=== PATIENT | male | born 1945 | race Caucasian/White ===

== ENCOUNTER 2020-10-01 16:00 | Inpatient (IN) | payer MEDICARE, OTHER ==
[~2020-10-01] VITALS: Ht 175.3 cm; Wt 81.2 kg
--- NOTE | 2020-10-01 16:15 | NUR ---
IFRAH FROM [facility] AFTER HAVING SYMPTOMATIC AFIB. PT WAS CONVERTED TO SR IN 60'S WITH 100 KJ CARDIOVERSON AFTER 6 OF ADENOSINE FAILED TO CONVERT. PT ALSO WITH ELEVATED TROP AT .745. HX OF AFIB AND MEDICAL NON COMPLIANCE. DR. GIRALDO TO BEDSIDE FOR EVALUATION. PT POSTIONED TO COMFORT. ATTACHED TO MONITOR. VSS. NADN. EKG DELIEVER TO DR. ANDERSON.
--- NOTE | 2020-10-01 16:50 | NUR ---
DR. REED TO BEDSIDE. ATTACHED TO MONITORS. VSS. DAVIDSON.
[2020-10-01] MEDS ORDERED: AMLO-210 PO (17:13)
[2020-10-01] MEDS ORDERED: RIVA10TA2 PO (17:13)
[2020-10-01] MEDS ORDERED: TIOT4MIS5 INH (17:13)
[2020-10-01] MEDS ORDERED: BUPR1FIL19 SL (17:13)
[2020-10-01] MEDS ORDERED: TERA2CAP3 PO (17:13)
[2020-10-01] MEDS ORDERED: ALBU5SOL6 INH (17:13)
[2020-10-01 17:19] LABS: BASOPHILS % (AUTO) 1 % (0-1); EOSINOPHILS % (AUTO) 3 % (1-7); LYMPHOCYTES % (AUTO) 17 % (22-44); MEAN CORPUSCULAR HEMOGLOBIN 32.5 pg (27.5-34.5); MEAN CORPUSCULAR HGB CONC 34.7 g/dL (33.2-36.2); MEAN PLATELET VOLUME 8.2 fL (7.4-10.4); MONOCYTES % (AUTO) 6 % (2-9); NEUTROPHILS % (AUTO) 73 % (42-75); PLATELET COUNT 208 x10^3/uL (130-400); RED CELL DISTRIBUTION WIDTH 13.4 % (9.4-14.8)
[2020-10-01 17:20] LABS: MD NO
[2020-10-01] MEDS ORDERED: ACETAMINOPHEN 325 MG TABLET PO PRN (17:30)
[2020-10-01] MEDS ORDERED: ONDANSETRON ODT 4 MG PO PRN (17:30)
[2020-10-01] MEDS ORDERED: ONDANSETRON 2MG/ML, 2ML IVPush PRN (17:30)
[2020-10-01] MEDS ORDERED: PROMETHAZINE 25 MG/ML, 1ML IM PRN (17:30)
[2020-10-01] MEDS ORDERED: BISACODYL 10 MG SUPP PR PRN (17:30)
[2020-10-01] MEDS ORDERED: hydrALAzine 20 MG/ML, 1ML IVPush PRN (17:30)
[2020-10-01] MEDS ORDERED: DOCUSATE 100 MG CAPSULE PO PRN (17:30)
[2020-10-01] MEDS ORDERED: FLUTICASONE/VILANTEROL 200-25MCG/INH INH SCH (17:30)
[2020-10-01] MEDS ORDERED: POLYETHYLENE GLYCOL 17 GM PACKET PO PRN (17:30)
[2020-10-01] MEDS ORDERED: NITROGLYCERIN 0.4 MG BOTTLE (25 TABS) SL PRN (17:30)
[2020-10-01] MEDS ORDERED: OXYcodone IR 5MG TABLET PO PRN (17:30)
[2020-10-01] MEDS ORDERED: morphine SULFATE 10 MG/ML, 1ML IVPush PRN (17:30)
[2020-10-01 17:31] LABS: ALANINE AMINOTRANSFERASE 19 U/L (12-78); ALBUMIN 3.3 g/dL (3.4-5.0); ANION GAP 3 mmol/L (5-15); CALCIUM 8.6 mg/dL (8.5-10.1); CHLORIDE 102 mmol/L (98-107); CREATININE 0.91 mg/dL (0.7-1.3)
[2020-10-01 17:36] LABS: ALKALINE PHOSPHATASE 88 U/L (45-117); BILIRUBIN,TOTAL 0.5 mg/dL (0.2-1.0); TOTAL PROTEIN 6.6 g/dL (6.4-8.2); TROPONIN I 0.073 ng/mL (0.000-0.045)
[2020-10-01 17:38] LABS: MICROSCOPIC NOT IND
--- NOTE | 2020-10-01 18:17 | NUR ---
PT SITTING UP EATING DINNER. VSS. PENALOZA
--- NOTE | 2020-10-01 18:34 | NUR ---
REPORT CALLED SARAH
[2020-10-01] MEDS: BUDESONIDE 0.5 MG/2 ML INHA NEB SCH (20:18)
[2020-10-01] MEDS: ALBUTEROL/IPRATROPIUM 2.5MG/0.5MG, 3 ML HHN SCH (20:18)
[2020-10-01] MEDS ORDERED: DILTIAZEM 30 MG TABLET PO SCH (21:00)
[2020-10-01 22:50] VITALS: BP 108/69
[2020-10-01 23:47] LABS: TROPONIN I 0.069 ng/mL (0.000-0.045)
[2020-10-02 01:16] VITALS: BP 127/68
[2020-10-02] MEDS: BUPRENORPHINE HCL/NALOXONE 8-2MG FILM SL SCH ×3 (01:19→20:47)
[2020-10-02 02:03] LABS: BASOPHILS % (AUTO) 1 % (0-1); EOSINOPHILS % (AUTO) 3 % (1-7); LYMPHOCYTES % (AUTO) 19 % (22-44); MEAN CORPUSCULAR HEMOGLOBIN 32.5 pg (27.5-34.5); MEAN CORPUSCULAR HGB CONC 34.6 g/dL (33.2-36.2); MEAN PLATELET VOLUME 8.1 fL (7.4-10.4); MONOCYTES % (AUTO) 8 % (2-9); NEUTROPHILS % (AUTO) 69 % (42-75); PLATELET COUNT 210 x10^3/uL (130-400); RED BLOOD COUNT 4.01 x10^6/uL (4.38-5.82); RED CELL DISTRIBUTION WIDTH 13.3 % (9.4-14.8)
[2020-10-02 02:04] LABS: MD NO
[2020-10-02 02:14] LABS: ANION GAP 6 mmol/L (5-15); CALCIUM 8.5 mg/dL (8.5-10.1); CHLORIDE 102 mmol/L (98-107); CREATININE 0.98 mg/dL (0.7-1.3)
[2020-10-02 02:15] LABS: ALANINE AMINOTRANSFERASE 17 U/L (12-78); ALBUMIN 3.3 g/dL (3.4-5.0); CHOLESTEROL, TOTAL 115 mg/dL (140-239)
[2020-10-02 02:23] LABS: ALKALINE PHOSPHATASE 83 U/L (45-117); BILIRUBIN,TOTAL 0.5 mg/dL (0.2-1.0); CHOL/HDL RATIO 2.6; HDL CHOL % 39 % (26-37); HDL CHOLESTEROL (DIRECT) 45 mg/dL (40-60); LDL CHOLESTEROL,CALCULATED 57 mg/dL (54-169); LDL/HDL RATIO 1.3 (0.5-3.0); TOTAL PROTEIN 6.5 g/dL (6.4-8.2); TRIGLYCERIDES 65 mg/dL (50-200); VLDL CHOLESTEROL 13 mg/dL (0-25)
[2020-10-02 02:24] LABS: TROPONIN I 0.068 ng/mL (0.000-0.045)
[2020-10-02] MEDS: ALBUTEROL/IPRATROPIUM 2.5MG/0.5MG, 3 ML HHN SCH ×2 (07:30→20:00)
[2020-10-02] MEDS: BUDESONIDE 0.5 MG/2 ML INHA NEB SCH ×2 (07:30→20:00)
[2020-10-02 08:12] VITALS: BP 126/66
[2020-10-02] MEDS: TERAZOSIN 2MG CAPSULE PO SCH (08:36)
[2020-10-02] MEDS: RIVAROXABAN 20 MG TABLET PO SCH (08:36)
[2020-10-02] MEDS: DILTIAZEM 30 MG TABLET PO SCH ×2 (08:37→18:31)
[2020-10-02] MEDS ORDERED: BUPRENORPHINE HCL/NALOXONE 8-2MG FILM SL SCH (09:00)
[2020-10-02] MEDS ORDERED: LISINOPRIL 10 MG TABLET PO SCH (09:00)
[2020-10-02 12:14] VITALS: BP 102/56
[2020-10-02 18:30] VITALS: BP 132/62
[2020-10-02 19:19] VITALS: BP 128/75
[2020-10-02] MEDS ORDERED: ALBUTEROL/IPRATROPIUM 2.5MG/0.5MG, 3 ML NEB SCH (21:00)
[2020-10-03] MEDS: DILTIAZEM 30 MG TABLET PO SCH ×3 (00:01→12:15)
[2020-10-03 00:37] VITALS: BP 100/57
[2020-10-03 07:30] VITALS: BP 146/66
[2020-10-03] MEDS: TERAZOSIN 2MG CAPSULE PO SCH (09:16)
[2020-10-03] MEDS: RIVAROXABAN 20 MG TABLET PO SCH (09:16)
[2020-10-03] MEDS: BUPRENORPHINE HCL/NALOXONE 8-2MG FILM SL SCH (09:17)
[2020-10-03 09:20] VITALS: BP 140/62
[2020-10-03 09:22] VITALS: BP 143/64
[2020-10-03 09:24] VITALS: BP 132/68
[2020-10-03] MEDS: BUDESONIDE 0.5 MG/2 ML INHA NEB SCH (10:20)
[2020-10-03] MEDS: ALBUTEROL/IPRATROPIUM 2.5MG/0.5MG, 3 ML HHN SCH (10:20)
[2020-10-03] MEDS ORDERED: DILT30TA33 PO (11:53)
[2020-10-03 12:08] VITALS: BP 123/63
== END 2020-10-03 12:33 | disposition home or self-care (01) | DRG 281 ==
LOC: ED 16:39 → EDIP 17:10 → 5SO 18:50 → DCLOUNGE 10-03 12:33
PROVIDERS: ADMIT Internal Medicine; ATTEND Internal Medicine
PROC: 5A2204Z Restoration of Cardiac Rhythm, Single (ICD-10-PCS; principal; 2020-10-01)
DX: I47.1 Supraventricular tachycardia (principal); I21.A1 Myocardial infarction type 2; E87.1 Hypo-osmolality and hyponatremia; D68.59 Other primary thrombophilia; J96.10 Chronic respiratory failure, unspecified whether with hypoxia or hypercapnia; I48.92 Unspecified atrial flutter; G89.29 Other chronic pain; I10 Essential (primary) hypertension; M54.9 Dorsalgia, unspecified; I48.91 Unspecified atrial fibrillation; J44.9 Chronic obstructive pulmonary disease, unspecified; N40.0 Benign prostatic hyperplasia without lower urinary tract symptoms; Z79.01 Long term (current) use of anticoagulants; Z87.828 Personal history of other (healed) physical injury and trauma; Z87.891 Personal history of nicotine dependence; Z91.19 Patient's noncompliance with other medical treatment and regimen; Z90.49 Acquired absence of other specified parts of digestive tract
CPT/HCPCS: 36415; 71045; 80053; 80061; 81003; 83036; 83735; 84100; 84443; 84484; 85025; 93005; 93306; 93356; 94640; 99285; G0378; J7626